=== PATIENT | male | born 1945 | race Caucasian/White ===

== ENCOUNTER 2018-03-06 09:15 | Inpatient (IN) | payer OTHER, MEDICARE | END 2018-03-09 12:13 | disposition home or self-care (01) | LOC: PAS IN 09:15 → ORTHO 4S 17:45 | PROC: 0SRD0J9 Replacement of Left Knee Joint with Synthetic Substitute, Cemented, Open Approach (ICD-10-PCS; principal; 2018-03-06 11:26) | DX: M17.12 Unilateral primary osteoarthritis, left knee (principal); D62 Acute posthemorrhagic anemia ==

== ENCOUNTER 2021-07-25 13:52 | Inpatient (IN) | payer OTHER, MEDICARE ==
[~2021-07-25] VITALS: Ht 172.7 cm; Wt 83.1 kg
[~2021-07-25 13:52] MED LIST: ALBU8.5H17 INH; AMIO200T61 PO; ASPI-1 PO; BUDE10.2 INH; BUPR75TA8 PO; CETI10TA19 PO; CHOL10002 PO; CLON0.5T23 PO; CYAN-51 PO; LISI40TA13 PO; LOP25T PO; OMEG1CAP13 PO; OXYC-481 PO; PANT-47 PO; PRAV40TA3 PO; TAMS0.4C32 PO; TIOT18CA3 PO
[2021-07-25 14:33] LABS: BASOPHILS % (AUTO) 0.5 % (0-1); EOSINOPHILS # (AUTO) 0.4 X10'3 (0-0.9); EOSINOPHILS % (AUTO) 7.5 % (0-6); HEMATOCRIT 37.9 % (42.0-52.0); HEMOGLOBIN 12.9 g/dl (14.0-17.9); LYMPHOCYTES # (AUTO) 0.8 X10'3 (1.1-4.8); LYMPHOCYTES % (AUTO) 17.1 % (21-51); MEAN CORPUSCULAR HEMOGLOBIN 31.4 PG (27.0-31.0); MEAN CORPUSCULAR HGB CONC 33.9 g/dL (33.0-36.5); MEAN CORPUSCULAR VOLUME 92.5 FL (78-98); MEAN PLATELET VOLUME 11.3 FL (7.4-10.4); MONOCYTES # (AUTO) 0.3 X10'3 (0-0.9); MONOCYTES % (AUTO) 5.8 % (2-12); NEUTROPHILS # (AUTO) 3.4 X10'3 (1.8-7.7); NEUTROPHILS % (AUTO) 69.1 % (42-75); PLATELET COUNT 142 X10'3 (140-440); RED BLOOD COUNT 4.09 X10'6 (4.70-6.10); RED CELL DISTRIBUTION WIDTH 13.4 % (11.5-14.5); WHITE BLOOD COUNT 4.9 X10'3 (4.5-11.0)
[2021-07-25 14:39] LABS: ALANINE AMINOTRANSFERASE 20 U/L (12-78); ALBUMIN 3.7 G/DL (3.4-5.0); ALBUMIN/GLOBULIN RATIO 1.1 (1.1-1.5); ALKALINE PHOSPHATASE 67 IU/L (46-116); ANION GAP 8 (8-16); ASPARTATE AMINO TRANSFERASE 13 U/L (10-37); BILIRUBIN,TOTAL 1.2 MG/DL (0.1-1.0); BLOOD UREA NITROGEN 16 MG/DL (7-18); BUN/CREATININE RATIO 11.9 (5.4-32.0); CALCIUM 8.9 MG/DL (8.5-10.1); CHLORIDE 108 MMOL/L (99-107); CREATININE 1.35 MG/DL (0.60-1.10); GLUCOSE 132 MG/DL (70-104); POTASSIUM 3.8 MMOL/L (3.5-5.1); SODIUM 142 MMOL/L (135-145); TOTAL PROTEIN 7.1 G/DL (6.4-8.2); eGFR 52 ML/MIN
--- NOTE | 2021-07-25 14:44 | NUR ---
bellman stephine aware of patient HR 36-41 sinus bradycardia .pt AOX 4 . at bedside.
[2021-07-25 15:10] LABS: LARGE PLATELETS FEW; PLATELET ESTIMATE NORMAL
[2021-07-25] MEDS ORDERED: magnesium hydroxide 30ml (MOM) UD suspension PO PRN (16:25)
[2021-07-25] MEDS ORDERED: ondansetron/PF 4mg/2ml inj IV PRN (16:25)
[2021-07-25] MEDS ORDERED: acetaminophen 325mg tablet PO PRN (16:25)
[2021-07-25] MEDS ORDERED: mag hydrox/Alum hydrox/simeth 30ml oral suspension PO PRN (16:25)
[2021-07-25] MEDS ORDERED: morphine 2 MG/ML inj. syringe IV PRN ×2 (16:25)
[2021-07-25] MEDS ORDERED: APIX5TAB3 PO (16:28)
[2021-07-25] MEDS ORDERED: METH-798 PO (16:33)
[2021-07-25] MEDS ORDERED: EZET10TA48 PO (16:33)
[2021-07-25] MEDS ORDERED: BUDE0.5A11 NEB (16:40)
[2021-07-25] MEDS: dextrose 5%-1/2 normal saline 1,000 ML IV SCH (16:42)
[2021-07-25] MEDS ORDERED: CLON0.3T PO (16:53)
[2021-07-25] MEDS ORDERED: potassium CL 10mEq/100ml bag 100 ML IV PRN (17:50)
[2021-07-25] MEDS ORDERED: magnesium Cl slow-release 64mg tablet PO PRN (17:50)
[2021-07-25] MEDS ORDERED: POTASSIUM BICARB 20meq eff tab 20 MEQ TABLET.EFF PO PRN (17:50)
[2021-07-25] MEDS ORDERED: magnesium 2GM in 50ml NS 50 ML IV PRN (17:50)
[2021-07-25] MEDS ORDERED: magnesium 4gm in 100ml NS 100 ML IV PRN (17:50)
[2021-07-25] MEDS ORDERED: albuterol 2.5 MG/3 ML nebule NEB PRN (18:00)
[2021-07-25 18:07] LABS: MAGNESIUM 2.1 MG/DL (1.5-2.4); POTASSIUM 3.8 MMOL/L (3.5-5.1)
--- NOTE | 2021-07-25 18:20 | NUR ---
DR CHOPRA AT BEDSIDE.
--- NOTE | 2021-07-25 19:31 | NUR ---
REPORT CALLED TO DAVID DOWNS.
[2021-07-25 19:59] VITALS: BP 129/60
[2021-07-25 20:00] VITALS: BP_SYST 129; BP_SYST 139; BP_DIAS 58; BP_DIAS 60; BP_DIAS 61
[2021-07-25] MEDS ORDERED: ipratropium 0.5 MG/2.5ML nebule IH SCH (20:00)
[2021-07-25] MEDS: K and/or MAG REPLACEMENT MC SCH (20:00)
[2021-07-25] MEDS: budesonide 0.5mg/2ml UD nebule IH SCH (20:02)
[2021-07-25] MEDS: ipratropium/albuterol 3ml nebule NEB SCH ×2 (20:19→23:00)
[2021-07-25] MEDS ORDERED: albuterol 2.5 MG/3 ML nebule NEB SCH (21:00)
[2021-07-25] MEDS ORDERED: nitroGLYCERIN 0.4mg SUBLingual tab SL PRN (21:35)
[2021-07-25] MEDS ORDERED: aminophylline 250mg/10ml inj. IV PRN (21:35)
[2021-07-25] MEDS ORDERED: metoprolol tartrate 1mg/ml inj IV PRN (21:35)
[2021-07-25] MEDS ORDERED: regadenoson 0.4mg/5ml syringe IV PRN (21:35)
[2021-07-25] MEDS: HYDROcodone/acetaminophen 5mg/325mg tablet PO PRN (21:35)
[2021-07-25] MEDS: OMEGA-3/DHA/EPA/FISH OIL 1 EACH CAPSULE.DR PO SCH (21:36)
[2021-07-25] MEDS: atorvastatin 20mg tablet PO SCH (21:36)
[2021-07-25] MEDS: docusate sod 100mg capsule PO SCH (21:36)
[2021-07-25 22:30] VITALS: BP 140/69
[2021-07-26 02:00] VITALS: BP 154/79
[2021-07-26] MEDS: dextrose 5%-1/2 normal saline 1,000 ML IV SCH ×3 (02:25→22:25)
[2021-07-26] MEDS: ipratropium/albuterol 3ml nebule NEB SCH ×6 (03:00→23:05)
[2021-07-26 06:00] VITALS: BP 178/87
--- NOTE | 2021-07-26 06:10 | NUR ---
Patient in room PCU 3027. I have received report from Will RN and had the opportunity to ask questions and assume patient care.
[2021-07-26 06:15] LABS: BASOPHILS % (AUTO) 0.7 % (0-1); EOSINOPHILS # (AUTO) 0.5 X10'3 (0-0.9); EOSINOPHILS % (AUTO) 11.1 % (0-6); HEMATOCRIT 35.5 % (42.0-52.0); HEMOGLOBIN 12.1 g/dl (14.0-17.9); LYMPHOCYTES # (AUTO) 1.1 X10'3 (1.1-4.8); LYMPHOCYTES % (AUTO) 24.6 % (21-51); MEAN CORPUSCULAR HEMOGLOBIN 31.5 PG (27.0-31.0); MEAN CORPUSCULAR HGB CONC 34.1 g/dL (33.0-36.5); MEAN CORPUSCULAR VOLUME 92.4 FL (78-98); MEAN PLATELET VOLUME 11.2 FL (7.4-10.4); MONOCYTES # (AUTO) 0.3 X10'3 (0-0.9); MONOCYTES % (AUTO) 7.6 % (2-12); NEUTROPHILS # (AUTO) 2.5 X10'3 (1.8-7.7); PLATELET COUNT 129 X10'3 (140-440); RED BLOOD COUNT 3.84 X10'6 (4.70-6.10); WHITE BLOOD COUNT 4.5 X10'3 (4.5-11.0)
--- NOTE | 2021-07-26 06:20 | NUR ---
Patient in room PCU 3027. I have received report from Will RN and had the opportunity to ask questions and assume patient care.
[2021-07-26 06:44] LABS: ALBUMIN 3.2 G/DL (3.4-5.0); ANION GAP 8 (8-16); BLOOD UREA NITROGEN 13 MG/DL (7-18); BUN/CREATININE RATIO 9.8 (5.4-32.0); CALCIUM 8.5 MG/DL (8.5-10.1); CHLORIDE 110 MMOL/L (99-107); CREATININE 1.33 MG/DL (0.60-1.10); GLUCOSE 125 MG/DL (70-104); POTASSIUM 3.5 MMOL/L (3.5-5.1); SODIUM 142 MMOL/L (135-145); TOTAL CARBON DIOXIDE 24.3 MMOL/L (24-32); eGFR 53 ML/MIN
[2021-07-26] MEDS: budesonide 0.5mg/2ml UD nebule IH SCH ×2 (07:13→19:25)
--- NOTE | 2021-07-26 07:15 | NUR ---
Paged Dr. Peirre regarding pts low HR and the need for a lexiscan. Message: [id number], Jenniferfarhana Haile. Patient has a Lexiscan ordered this morning but HR is 38. Nuc med doesn't feel comfortable doing it yet and wants to know if we can do anything to raise the HR? Ava [facility] 2401.
[2021-07-26] MEDS: K and/or MAG REPLACEMENT MC SCH ×2 (08:00→20:44)
[2021-07-26] MEDS: buPROPion 75mg tablet PO SCH (08:57)
[2021-07-26] MEDS: OMEGA-3/DHA/EPA/FISH OIL 1 EACH CAPSULE.DR PO SCH ×2 (08:58→20:44)
[2021-07-26] MEDS: pantoprazole 40mg Tablet.DR PO SCH (08:58)
[2021-07-26] MEDS: tamsulosin 0.4mg capsule PO SCH (08:58)
[2021-07-26] MEDS: cyanocobalamin 500mcg tablet PO SCH (08:58)
[2021-07-26] MEDS: docusate sod 100mg capsule PO SCH ×2 (08:59→20:44)
[2021-07-26] MEDS: cholecalciferol (vitamin D3) 1,000 unit (25mcg) tablet PO SCH (08:59)
[2021-07-26] MEDS: cetirizine 10mg tablet PO SCH (08:59)
[2021-07-26] MEDS: lisinopril 20mg tablet PO SCH (09:07)
[2021-07-26 09:10] LABS: LARGE PLATELETS MODERATE; PLATELET ESTIMATE DECREASED
[2021-07-26 09:11] LABS: ACANTHOCYTES 1+; ELLIPTOCYTES 2+; POIKILOCYTOSIS 1+
[2021-07-26 11:00] VITALS: BP 188/81
--- NOTE | 2021-07-26 13:24 | NUR ---
Paged Yessenia Onofre asking if the patient is going to have the pacemaker done today, or if all all. [id number], Eulalio Haile. Pts family is wanting to know if he is getting a pacemaker, if so they want to know when. Ava [facility] 6351.
--- NOTE | 2021-07-26 14:38 | NUR ---
Paged Dr. Pierre with recommendation from cardiology saying patient still needs stress test. Message: [id number], Eulalio Haile. Pt HR 44, it was 51 for a minute. Yessenia said he could have the stress test, still trending in the low 40's. He still has some chest pressure Pope said event monitor for home instead of a pacemaker. Ava 7342.
[2021-07-26 15:00] VITALS: BP 169/75
[2021-07-26] MEDS: HYDROcodone/acetaminophen 5mg/325mg tablet PO PRN (17:28)
[2021-07-26 18:00] VITALS: BP 169/72
--- NOTE | 2021-07-26 18:33 | NUR ---
Problems reprioritized. Patient report given, questions answered & plan of care reviewed with Will RN, patient stable at transfer of care.
[2021-07-26] MEDS: atorvastatin 20mg tablet PO SCH (20:44)
[2021-07-26] MEDS: acetaminophen 325mg tablet PO PRN (20:50)
[2021-07-27] VITALS (7 sets, daily range): BP systolic 139–225; BP diastolic 74–188
[2021-07-27] MEDS ORDERED: hydrALAZINE 20mg/ml inj. IV ONE ×2 (03:00→08:50)
[2021-07-27] MEDS: ipratropium/albuterol 3ml nebule NEB SCH ×4 (03:00→15:00)
[2021-07-27] MEDS ORDERED: hydrALAZINE 20mg/ml inj. IV PRN (05:45)
--- NOTE | 2021-07-27 06:08 | NUR ---
pt bp this morning was 212/98 heart rate 53, covering provider was notified and orders were given and carried out.
[2021-07-27 06:10] LABS: BASOPHILS % (AUTO) 0.5 % (0-1); EOSINOPHILS # (AUTO) 0.3 X10'3 (0-0.9); EOSINOPHILS % (AUTO) 5.5 % (0-6); HEMATOCRIT 36.1 % (42.0-52.0); HEMOGLOBIN 12.4 g/dl (14.0-17.9); LYMPHOCYTES % (AUTO) 17.4 % (21-51); MEAN CORPUSCULAR HEMOGLOBIN 31.7 PG (27.0-31.0); MEAN CORPUSCULAR HGB CONC 34.3 g/dL (33.0-36.5); MEAN CORPUSCULAR VOLUME 92.3 FL (78-98); MEAN PLATELET VOLUME 11.1 FL (7.4-10.4); MONOCYTES # (AUTO) 0.5 X10'3 (0-0.9); MONOCYTES % (AUTO) 8.3 % (2-12); NEUTROPHILS # (AUTO) 3.9 X10'3 (1.8-7.7); NEUTROPHILS % (AUTO) 68.3 % (42-75); PLATELET COUNT 146 X10'3 (140-440); RED BLOOD COUNT 3.91 X10'6 (4.70-6.10); RED CELL DISTRIBUTION WIDTH 13.4 % (11.5-14.5); WHITE BLOOD COUNT 5.7 X10'3 (4.5-11.0)
--- NOTE | 2021-07-27 06:25 | NUR ---
Patient in room PCU 3027. I have received report from Will RN and had the opportunity to ask questions and assume patient care.
[2021-07-27 06:30] LABS: ALBUMIN 3.2 G/DL (3.4-5.0); ANION GAP 9 (8-16); BLOOD UREA NITROGEN 11 MG/DL (7-18); BUN/CREATININE RATIO 9.2 (5.4-32.0); CHLORIDE 113 MMOL/L (99-107); GLUCOSE 112 MG/DL (70-104); MAGNESIUM 1.9 MG/DL (1.5-2.4); PHOSPHORUS 3.9 MG/DL (2.3-4.5); POTASSIUM 3.1 MMOL/L (3.5-5.1); SODIUM 146 MMOL/L (135-145); TOTAL CARBON DIOXIDE 23.7 MMOL/L (24-32); eGFR 59 ML/MIN
[2021-07-27] MEDS: budesonide 0.5mg/2ml UD nebule IH SCH ×2 (07:20→20:00)
[2021-07-27] MEDS: lisinopril 20mg tablet PO SCH (07:48)
[2021-07-27] MEDS: POTASSIUM BICARB 20meq eff tab 20 MEQ TABLET.EFF PO PRN ×2 (07:48→13:25)
[2021-07-27] MEDS: cyanocobalamin 500mcg tablet PO SCH (07:48)
[2021-07-27] MEDS: OMEGA-3/DHA/EPA/FISH OIL 1 EACH CAPSULE.DR PO SCH ×2 (07:48→20:25)
[2021-07-27] MEDS: docusate sod 100mg capsule PO SCH ×2 (07:49→20:25)
[2021-07-27] MEDS: cetirizine 10mg tablet PO SCH (07:50)
[2021-07-27] MEDS: buPROPion 75mg tablet PO SCH (07:50)
[2021-07-27] MEDS: pantoprazole 40mg Tablet.DR PO SCH (07:50)
[2021-07-27] MEDS: cholecalciferol (vitamin D3) 1,000 unit (25mcg) tablet PO SCH (07:50)
[2021-07-27] MEDS: tamsulosin 0.4mg capsule PO SCH (07:50)
[2021-07-27] MEDS: K and/or MAG REPLACEMENT MC SCH ×2 (08:00→20:00)
[2021-07-27] MEDS: dextrose 5%-1/2 normal saline 1,000 ML IV SCH ×2 (08:25→23:34)
[2021-07-27] MEDS ORDERED: PEG 400/HYPROMELLOSE/GLYCERIN 15ml bottle EACHEYE PRN (11:20)
[2021-07-27] MEDS ORDERED: diphenhydrAMINE 50 mg/ml inj IV ONE (11:20)
--- NOTE | 2021-07-27 12:59 | NUR ---
Paged Dr. morales regarding pts BP of 200/101 and still complaining of headache. They are asking if there is anything else that can be given for elevated BP other than Hydralazine. Message: [id number], Nima Haile. Pts BP is 200/101, HR 71, and complaining of headache. The patient and are wanting to know if there is anything else he cant take to lower the BP. Ava [facility] 1606.
[2021-07-27] MEDS ORDERED: metoclopramide 5 mg/ml inj IV PRN (14:00)
[2021-07-27] MEDS: amLODIPine 5mg tablet PO SCH (14:48)
[2021-07-27] MEDS ORDERED: LORazepam 2 mg/ml vial IV ONE (15:05)
[2021-07-27] MEDS: acetaminophen 325mg tablet PO PRN (15:57)
[2021-07-27] MEDS ORDERED: ipratropium/albuterol 3ml nebule NEB PRN (16:00)
[2021-07-27] MEDS ORDERED: hydrALAZINE 25 MG tablet PO SCH (16:00)
[2021-07-27] MEDS ORDERED: LORazepam 2 mg/ml vial IV PRN (16:00)
[2021-07-27] MEDS: apixaban 5mg tablet PO SCH ×2 (16:14→20:26)
[2021-07-27] MEDS ORDERED: aspirin 325mg tablet PO ONE (16:45)
--- NOTE | 2021-07-27 17:11 | NUR ---
Paged Dr. Pierre with concerns from the patients that the BP is still about 200 systolic. Message: [id number], Eulalio Haile. Pts is still very concerned with his BP. Most recent on the right arm 202/94, left arm 210/105. Just giving you an update. Ava [facility] 2279.
[2021-07-27] MEDS: niCARDipine-NS 40mg/200ml IVPB 200 ML IV SCH (17:35)
[2021-07-27] MEDS: atorvastatin 20mg tablet PO SCH (20:26)
[2021-07-28] VITALS (8 sets, daily range): BP systolic 126–160; BP diastolic 58–81
[2021-07-28] MEDS: niCARDipine-NS 40mg/200ml IVPB 200 ML IV SCH (01:17)
[2021-07-28] MEDS: dextrose 5%-1/2 normal saline 1,000 ML IV SCH (01:25)
[2021-07-28 06:33] LABS: BASOPHILS % (AUTO) 0.2 % (0-1); EOSINOPHILS % (AUTO) 0.2 % (0-6); HEMATOCRIT 41.7 % (42.0-52.0); HEMOGLOBIN 14.4 g/dl (14.0-17.9); LYMPHOCYTES % (AUTO) 12.8 % (21-51); MEAN CORPUSCULAR HGB CONC 34.6 g/dL (33.0-36.5); MEAN CORPUSCULAR VOLUME 92.5 FL (78-98); MEAN PLATELET VOLUME 10.3 FL (7.4-10.4); MONOCYTES # (AUTO) 0.6 X10'3 (0-0.9); MONOCYTES % (AUTO) 7.8 % (2-12); NEUTROPHILS # (AUTO) 5.9 X10'3 (1.8-7.7); PLATELET COUNT 175 X10'3 (140-440); RED BLOOD COUNT 4.51 X10'6 (4.70-6.10); RED CELL DISTRIBUTION WIDTH 13.6 % (11.5-14.5); WHITE BLOOD COUNT 7.4 X10'3 (4.5-11.0)
[2021-07-28 06:38] LABS: ANION GAP 12 (8-16); BLOOD UREA NITROGEN 8 MG/DL (7-18); BUN/CREATININE RATIO 7.6 (5.4-32.0); CALCIUM 9.7 MG/DL (8.5-10.1); CHLORIDE 107 MMOL/L (99-107); CHOLESTEROL 88 MG/DL (0-200); CREATININE 1.05 MG/DL (0.60-1.10); GLUCOSE 114 MG/DL (70-104); HDL CHOLESTEROL 45 MG/DL (35-60); LDL CHOLESTEROL 32 MG/DL (50-100); PHOSPHORUS 2.9 MG/DL (2.3-4.5); POTASSIUM 3.4 MMOL/L (3.5-5.1); SODIUM 143 MMOL/L (135-145); TOTAL CARBON DIOXIDE 24.2 MMOL/L (24-32); TRIGLYCERIDES 39 MG/DL (20-135); eGFR 69 ML/MIN
[2021-07-28] MEDS: K and/or MAG REPLACEMENT MC SCH ×2 (06:57→19:38)
[2021-07-28 07:06] LABS: HEMOGLOBIN A1C 6.2 % (4.5-6.2)
[2021-07-28] MEDS: POTASSIUM BICARB 20meq eff tab 20 MEQ TABLET.EFF PO PRN ×3 (07:23→16:14)
[2021-07-28] MEDS: buPROPion 75mg tablet PO SCH (07:23)
[2021-07-28] MEDS: cholecalciferol (vitamin D3) 1,000 unit (25mcg) tablet PO SCH (07:24)
[2021-07-28] MEDS: amLODIPine 5mg tablet PO SCH (07:24)
[2021-07-28] MEDS: pantoprazole 40mg Tablet.DR PO SCH (07:24)
[2021-07-28] MEDS: docusate sod 100mg capsule PO SCH ×2 (07:24→20:00)
[2021-07-28] MEDS: cetirizine 10mg tablet PO SCH (07:25)
[2021-07-28] MEDS: apixaban 5mg tablet PO SCH ×2 (07:25→20:00)
[2021-07-28] MEDS: lisinopril 20mg tablet PO SCH (07:25)
[2021-07-28] MEDS: tamsulosin 0.4mg capsule PO SCH (07:25)
[2021-07-28] MEDS: cyanocobalamin 500mcg tablet PO SCH (07:26)
[2021-07-28] MEDS: OMEGA-3/DHA/EPA/FISH OIL 1 EACH CAPSULE.DR PO SCH ×2 (07:26→20:00)
[2021-07-28] MEDS: budesonide 0.5mg/2ml UD nebule IH SCH ×2 (07:47→20:00)
[2021-07-28] MEDS: aspirin 81mg tab.chew PO SCH (09:07)
--- NOTE | 2021-07-28 09:09 | NUR ---
INGRID AND D5 NS DISCONTINUED PER .
--- NOTE | 2021-07-28 15:54 | NUR ---
PAGE SENT Message: [id number], EWA WOLFE, UNABLE TO DO MRI PT HAS SHRAPNEL. CONTACTED BY DELFIN MATTHEWS. THANK YOU, PAULETTE [id number]
--- NOTE | 2021-07-28 18:30 | NUR ---
Problems reprioritized. Patient report given, questions answered & plan of care reviewed with YARELI GORMAN.
[2021-07-28] MEDS: atorvastatin 20mg tablet PO SCH (20:00)
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
[2021-07-28] MEDS ORDERED: oxyCODONE IR 5mg (immed. release) tablet PO PRN (22:40)
[2021-07-29 02:00] VITALS: BP 158/81
[2021-07-29 06:20] LABS: BASOPHILS % (AUTO) 0.4 % (0-1); EOSINOPHILS % (AUTO) 0.8 % (0-6); HEMATOCRIT 42.3 % (42.0-52.0); HEMOGLOBIN 14.4 g/dl (14.0-17.9); LYMPHOCYTES # (AUTO) 1.2 X10'3 (1.1-4.8); LYMPHOCYTES % (AUTO) 18.3 % (21-51); MEAN CORPUSCULAR HEMOGLOBIN 31.7 PG (27.0-31.0); MEAN CORPUSCULAR HGB CONC 34.1 g/dL (33.0-36.5); MEAN CORPUSCULAR VOLUME 93.1 FL (78-98); MEAN PLATELET VOLUME 9.6 FL (7.4-10.4); MONOCYTES # (AUTO) 0.7 X10'3 (0-0.9); MONOCYTES % (AUTO) 10.3 % (2-12); NEUTROPHILS # (AUTO) 4.7 X10'3 (1.8-7.7); NEUTROPHILS % (AUTO) 70.2 % (42-75); PLATELET COUNT 188 X10'3 (140-440); RED BLOOD COUNT 4.55 X10'6 (4.70-6.10); RED CELL DISTRIBUTION WIDTH 13.5 % (11.5-14.5); WHITE BLOOD COUNT 6.6 X10'3 (4.5-11.0)
--- NOTE | 2021-07-29 06:20 | NUR ---
Patient in room PCU 3027. I have received report from YARELI Quiles and had the opportunity to ask questions and assume patient care.
[2021-07-29 06:28] LABS: ALBUMIN 3.7 G/DL (3.4-5.0); ANION GAP 8 (8-16); BLOOD UREA NITROGEN 15 MG/DL (7-18); BUN/CREATININE RATIO 12.6 (5.4-32.0); CALCIUM 9.8 MG/DL (8.5-10.1); CHLORIDE 108 MMOL/L (99-107); CREATININE 1.19 MG/DL (0.60-1.10); GLUCOSE 117 MG/DL (70-104); MAGNESIUM 1.9 MG/DL (1.5-2.4); PHOSPHORUS 3.4 MG/DL (2.3-4.5); POTASSIUM 3.7 MMOL/L (3.5-5.1); SODIUM 143 MMOL/L (135-145); TOTAL CARBON DIOXIDE 27.4 MMOL/L (24-32); eGFR 60 ML/MIN
[2021-07-29 06:30] VITALS: BP 143/77
[2021-07-29] MEDS: K and/or MAG REPLACEMENT MC SCH (07:43)
[2021-07-29] MEDS: budesonide 0.5mg/2ml UD nebule IH SCH (08:00)
[2021-07-29] MEDS ORDERED: ASPI81TA53 PO (08:35)
[2021-07-29] MEDS ORDERED: PEG15DRO14 EACHEYE (08:35)
[2021-07-29] MEDS ORDERED: NICA30CA PO (08:35)
[2021-07-29] MEDS: apixaban 5mg tablet PO SCH (09:51)
[2021-07-29] MEDS: docusate sod 100mg capsule PO SCH (09:52)
[2021-07-29] MEDS: pantoprazole 40mg Tablet.DR PO SCH (09:52)
[2021-07-29] MEDS: tamsulosin 0.4mg capsule PO SCH (09:52)
[2021-07-29] MEDS: cetirizine 10mg tablet PO SCH (09:52)
[2021-07-29] MEDS: cholecalciferol (vitamin D3) 1,000 unit (25mcg) tablet PO SCH (09:52)
[2021-07-29] MEDS: OMEGA-3/DHA/EPA/FISH OIL 1 EACH CAPSULE.DR PO SCH (09:52)
[2021-07-29] MEDS: buPROPion 75mg tablet PO SCH (09:52)
[2021-07-29] MEDS: lisinopril 20mg tablet PO SCH (09:53)
[2021-07-29] MEDS: aspirin 81mg tab.chew PO SCH (09:53)
[2021-07-29] MEDS: cyanocobalamin 500mcg tablet PO SCH (09:53)
[2021-07-29 10:30] VITALS: BP 144/82
[2021-07-29] MEDS ORDERED: NIFEdipine XL 30mg tablet PO SCH (11:30)
[2021-07-29] MEDS ORDERED: NIFE30TA95 PO (12:09)
--- NOTE | 2021-07-29 13:00 | NUR ---
DC inst provided to pt & pt's , Sindy. IV DC'd, tip intact. All belongings sent w/pt. WC to vehicle.
== END 2021-07-29 12:49 | disposition home or self-care (01) | DRG 309 ==
LOC: ER 13:52 → ED HOLD 16:28 → EDBEDREQ 18:23 → PCU 3S 19:44
PROVIDERS: ADMIT Internal Medicine; ATTEND Internal Medicine
DX: R00.1 Bradycardia, unspecified (principal); I16.1 Hypertensive emergency; E87.0 Hyperosmolality and hypernatremia; N17.9 Acute kidney failure, unspecified; I25.119 Atherosclerotic heart disease of native coronary artery with unspecified angina pectoris; F32.A Depression, unspecified; F41.9 Anxiety disorder, unspecified; I10 Essential (primary) hypertension; N40.0 Benign prostatic hyperplasia without lower urinary tract symptoms; K21.9 Gastro-esophageal reflux disease without esophagitis; Z20.822 Contact with and (suspected) exposure to COVID-19; G89.4 Chronic pain syndrome; I48.0 Paroxysmal atrial fibrillation; J44.9 Chronic obstructive pulmonary disease, unspecified; E78.5 Hyperlipidemia, unspecified; Z96.652 Presence of left artificial knee joint; B19.20 Unspecified viral hepatitis C without hepatic coma; G47.33 Obstructive sleep apnea (adult) (pediatric); H57.89 Other specified disorders of eye and adnexa; R63.0 Anorexia; E78.00 Pure hypercholesterolemia, unspecified; E87.6 Hypokalemia; G47.00 Insomnia, unspecified; Z79.01 Long term (current) use of anticoagulants; Z79.899 Other long term (current) drug therapy; Z80.42 Family history of malignant neoplasm of prostate; Z82.61 Family history of arthritis; Z95.1 Presence of aortocoronary bypass graft; Z28.310 Unvaccinated for COVID-19; Z68.27 Body mass index [BMI] 27.0-27.9, adult; T46.5X5A Adverse effect of other antihypertensive drugs, initial encounter; Y92.230 Patient room in hospital as the place of occurrence of the external cause; R51.9 Headache, unspecified; R11.2 Nausea with vomiting, unspecified
CPT/HCPCS: 36415; 70450; 71045; 80048; 80053; 80061; 83036; 83735; 83880; 84100; 84132; 84443; 84484; 85008; 85025; 87081; 87635; 93005; 93306; 94640; 94760; 99285; G0378; J0360; J1200; J2060; J2405; J2765; J3490; J7042